=== PATIENT | female | born 1970 | race Caucasian/White ===

== ENCOUNTER 2017-01-14 20:27 | Emergency (ER) | payer MEDICAID ==
[~2017-01-14] VITALS: Ht 162.6 cm; Wt 107.0 kg
[2017-01-14 20:36] VITALS: Ht 162.6 cm; Wt 107.0 kg
[2017-01-14] MEDS ORDERED: IBUP-1542 PO (22:52)
[2017-01-14] MEDS ORDERED: OFLO5DRO7 RIGHT EAR (22:52)
--- NOTE | 2017-01-14 23:11 | ERD ---
ER Documentation Chief Complaint Date/Time DATE: 01/14/17 TIME: 23:07 Chief Complaint right earache x 4 weeks HPI 46-year-old female presents here in emergency department for complaints of right ear pain for 4 weeks, patient is complaining of pain, sharp pain, 6/10 scale, as whitish discharge coming from the right ear. Patient denies any problems with hearing. Patient denies any fever or chills. ROS All systems reviewed and are negative except as per history of present illness. Medications Home Meds Active Scripts Ofloxacin Otic (Ofloxacin Otic) 5 Ml Drops, 5 DROP RIGHT EAR BID for 10 Days, # 1 BOTTLE Prov:BOOKER FRANCOIS NP 01/14/17 Ibuprofen* (Motrin*) 600 Mg Tab, 600 MG PO Q6H Y for PAIN AND OR ELEVATED TEMP, #30 TAB Prov:BOOKER FRANCOIS NP 01/14/17 Reported Medications [None] No Conflict Check 05/01/12 Allergies Allergies: Coded Allergies: No Known Allergy (Unverified , 01/14/17) PMhx/Soc History of Surgery: Yes (Appy,Tubal Ligation) Anesthesia Reaction: No Hx Neurological Disorder: No Hx Respiratory Disorders: No Hx Cardiac Disorders: Yes (HTN) Hx Psychiatric Problems: No Hx Miscellaneous Medical Probl: Yes (Gallstones,Hypothyroidism,NIDDM) Hx Alcohol Use: No Hx Substance Use: No Hx Tobacco Use: No Smoking Status: Never smoker FmHx Family History: No coronary disease, No diabetes, No other Physical Exam Vitals Vital Signs Date Time Temp Pulse Resp B/P Pulse Ox O2 Delivery O2 Flow Rate FiO2 01/14/17 20:36 98.0 91 20 142/75 97 Physical Exam GENERAL: The patient is well developed and appropriate for usual state of health, in no apparent distress HEENT: Atraumatic. Ears: Normal tympanic membrane, no erythema or bulging. Noted right ear canal swelling with some whitish discharge, no foreign body noted. Left ear canal noted. Nose: normal nasal turbinates, no erythema or swelling. Normal nasal discharge. Throat: oropharynx clear. No tonsillar swelling or tonsillar exudates. No lymphadenopathy.. CHEST: Clear to auscultation bilaterally. There are no rales, wheezes or rhonchi. HEART: Regular rate and rhythm. No murmurs, clicks, rubs or gallops. No S3 or S4. ABDOMEN: Soft, nontender and nondistended. Good bowel sounds. No rebound or guarding. No gross peritonitis. No gross organomegaly or masses. No Hernandez sign or McBurney point tenderness. BACK: No midline or flank tenderness. EXTREMITIES: Equal pulses bilaterally. There is no peripheral clubbing, cyanosis or edema. No focal swelling or erythema. Full range of motion. Grossly neurovascularly intact. NEURO: Alert and oriented. Cranial nerves 2-12 intact. Motor strength in all 4 extremities with 5/5 strength. Sensation grossly intact. Normal speech and gait. SKIN: There is no apparent rash or petechia. The skin is warm and dry. HEMATOLOGIC AND LYMPHATIC: There is no evidence of excessive bruising or lymphedema. No gross cervical, axillary, or inguinal lymphadenopathy. Procedures/MDM Medical decision making: Patient symptoms is likely consistent with otitis externa, no symptoms of otitis media or mastoiditis. No foreign body. No TM perforation. No symptoms of any malignant otitis. No symptoms of any cellulitis. Prescription was given for Corticosporin otic drops, ibuprofen, is advised to follow-up with primary care doctor in 2-3 days for reevaluation of her symptoms. Patient was advised to return to emergency department Disposition: Home. Stable. Disclaimer: Inadvertent spelling and grammatical errors are likely due to EHR/ dictation software use and do not reflect on the overall quality of patient care. Also, please note that the electronic time recorded on this note does not necessarily reflect the actual time of the patient encounter. Departure Diagnosis: Primary Impression: Otitis externa Otitis externa type: unspecified type Chronicity: acute Laterality: right Qualified Code: H60.501 - Acute otitis externa of right ear, unspecified type Condition: Stable Patient Instructions: External Ear Infection (Adult) BOOKER FRANCOIS NP Jan 14, 2017 23:11
== END 2017-01-14 23:43 | disposition home or self-care (01) ==
LOC: FTE 20:27
DX: H60.501 Unspecified acute noninfective otitis externa, right ear (principal); I10 Essential (primary) hypertension; E03.9 Hypothyroidism, unspecified; E11.9 Type 2 diabetes mellitus without complications
CPT/HCPCS: 99283